=== PATIENT | male | born 1980 | race Caucasian/White ===

== ENCOUNTER 2021-02-25 08:42 | Emergency (ER) | payer BC ==
[~2021-02-25] VITALS: Ht 175.3 cm; Wt 86.2 kg
[2021-02-25] MEDS ORDERED: PHENYLEPHRINE HCL 1% 10 MG/ML VIAL ONE ×2 (09:16→09:24)
[2021-02-25] MEDS ORDERED: SODIUM CHLORIDE 0.9% 50ML 50 ML ONE (09:17)
[2021-02-25] MEDS ORDERED: SODIUM CHLORIDE 0.9% 500ML 500 ML ONE (09:26)
[2021-02-25] MEDS ORDERED: Cefazolin 1 GM in SODIUM CHLORIDE 0.9% 50ML 50 ML IV ONE (10:00)
== END 2021-02-25 12:06 | disposition home or self-care (01) ==
LOC: ER 08:46
DX: N48.33 Priapism, drug-induced (principal); T46.7X5A Adverse effect of peripheral vasodilators, initial encounter; F43.10 Post-traumatic stress disorder, unspecified
CPT/HCPCS: 99284; J0690; J2370; J7040